=== PATIENT | male | born 1990 | race Caucasian/White ===

== ENCOUNTER 2017-11-05 16:43 | Emergency (ER) | payer BC, OTHER ==
[2017-11-05] MEDS ORDERED: Tetan/Diph/Pertus SYR(Tdap)* 0.5 ML SYR(BOOSTRIX) use SYR IM ONE (17:14)
--- NOTE | 2017-11-05 17:58 | RAD ---
INDICATION: The patient stepped on a screw COMPARISON: None. TECHNIQUE: 3 views of the right foot were obtained. FINDINGS: No metallic subcutaneous foreign body is seen. The adequately corticated bones are properly aligned. Joint spaces appear maintained. No fracture, dislocation or focal bony abnormality is seen. IMPRESSION: NO HYPER DENSE SUBCUTANEOUS FOREIGN BODY IS SEEN ON THIS NORMAL RIGHT FOOT RADIOGRAPH. If the patient's symptoms persist, follow-up imaging is recommended.
[2017-11-05] MEDS ORDERED: Ciprofloxacin TAB* 500 MG PO ONE (18:11)
--- NOTE | 2017-11-05 18:12 | ED ---
Lower Extremity - HPI Summary HPI Summary: Complains of stepping on large screw which entered through his boot and into his right foot. Patient believes he got complete screw out of his foot. Medical history is none. No anti-coag. - History of Current Complaint Chief Complaint: EDLacSutureRecheck Stated Complaint: RT FOOT INJURY Time Seen by Provider: 11/05/17 17:13 Hx Obtained From: Patient Mechanism Of Injury: Penetrating Trauma Onset of Pain: Immediate Onset/Duration: Hours Severity Initially: Mild Severity Currently: Mild Pain Intensity: 1 Pain Scale Used: 0-10 Numeric Timing: Constant Location: Is Discrete @ Character Of Pain: Aching Associated Signs And Symptoms: Positive: Negative Aggravating Factor(s): Standing, Weight Bearing Alleviating Factor(s): Rest Able to Bear Weight: Yes - Allergies/Home Medications Allergies/Adverse Reactions: Allergies Allergy/AdvReac Type Severity Reaction Status Date / Time No Known Allergies Allergy Verified 11/05/17 16:58 PMH/Surg Hx/FS Hx/Imm Hx Endocrine/Hematology History: Denies: Hx Anticoagulant Therapy Cardiovascular History: Denies: Hx Cardiac Arrest History: Denies: Hx Dialysis Neurological History: Denies: Hx CVA Infectious Disease History: No Infectious Disease History: Denies: Traveled Outside the [place] in Last 30 Days - Social History Alcohol Use: None Substance Use Type: Reports: None Smoking Status (MU): Never Smoked Tobacco Review of Systems Constitutional: Negative Eyes: Negative ENT: Negative Cardiovascular: Negative Respiratory: Negative Gastrointestinal: Negative Genitourinary: Negative Musculoskeletal: Negative Skin: Other Neurological: Negative Psychological: Normal All Other Systems Reviewed And Are Negative: Yes Physical Exam - Summary Physical Exam Summary: Puncture wound to base of right forefoot. No ecchymosis, deformity, swelling, erythema, extra warmth noted to right foot. PMS intact distally. Triage Information Reviewed: Yes Vital Signs On Initial Exam: Initial Vitals Temp Pulse Resp BP Pulse Ox 98.9 F 83 16 135/73 97 11/05/17 16:56 11/05/17 16:56 11/05/17 16:56 11/05/17 16:56 11/05/17 16:56 Vital Signs Reviewed: Yes Appearance: Positive: Well-Appearing Skin: Positive: Warm Head/Face: Positive: Normal Head/Face Inspection Eyes: Positive: Normal Neck: Positive: Supple Respiratory/Lung Sounds: Positive: Clear to Auscultation Cardiovascular: Positive: Normal Abdomen Description: Positive: Nontender Musculoskeletal: Positive: Normal Neurological: Positive: Normal Psychiatric: Positive: Normal AVPU Assessment: Alert - Rodney Coma Scale Best Eye Response: 4 - Spontaneous Best Motor Response: 6 - Obeys Commands Best Verbal Response: 5 - Oriented Coma Scale Total: 15 Diagnostics - Vital Signs Vital Signs Temp Pulse Resp BP Pulse Ox 11/05/17 16:56 98.9 F 83 16 135/73 97 - Laboratory Lab Statement: Any lab studies that have been ordered have been reviewed, and results considered in the medical decision making process. - Radiology fpoot Xray Interpretation: No Acute Changes Radiology Interpretation Completed By: Radiologist Lower Extremity Course/Dx - Course Course Of Treatment: Complains of stepping on large screw which entered through his boot and into his right foot. Patient believes he got complete screw out of his foot. Medical history is none. No anti-coag. Physical exam:Puncture wound to base of right forefoot. No ecchymosis, deformity, swelling, erythema, extra warmth noted to right foot. PMS intact distally. Wound cleaned with chlorhexidine placed under pressure through a catheter into wound. X-ray negative for bony involvement or foreign body retention. Patient started on Cipro here in the ED. Rx for same. - Diagnoses Provider Diagnoses: Foreign body in right foot Discharge - Sign-Out/Discharge Documenting (check all that apply): Patient Departure - Discharge Plan Condition: Stable Disposition: HOME Prescriptions: Ciprofloxacin HCl [Cipro] 500 mg PO BID 10 Days #20 tablet Patient Education Materials: Soft Tissue Foreign Body (ED) Referrals: No Primary Care Phys,NOPCP [Primary Care Provider] - Additional Instructions: Take antibiotics as directed. Keep wound clean. Return to the ED for any new or worsening symptoms - Billing Disposition and Condition Condition: STABLE Disposition: Home
[2017-11-05 18:29] VITALS: BP 128/67
== END 2017-11-05 18:28 | disposition home or self-care (01) ==
LOC: ED 16:43
DX: S90.851A Superficial foreign body, right foot, initial encounter (principal); W22.8XXA Striking against or struck by other objects, initial encounter; Y92.9 Unspecified place or not applicable
CPT/HCPCS: 90471; 90715; 99282; A9270-GY